=== PATIENT | male | born 1945 | race Caucasian/White ===

== ENCOUNTER 2025-07-20 08:10 | Day surgery (SDC) | payer OTHER, MEDICARE ==
[2025-07-20 08:36] LABS: ABSOLUTE IMMATURE GRANULOCYTES 0.02 x10^3/uL (0.0-0.031); BASOPHILS # 0.03 x10^3/uL (0.01-0.08); EOSINOPHIL % 2.6 % (0.8-7.0); EOSINOPHILS # 0.18 x10^3/uL (0.04-0.54); MCHC 31.5 g/dl (32.3-36.5); MEAN CELL VOLUME 101.5 fl (79.0-92.2); MEAN PLT VOLUME 9.2 fl (9.4-12.4); MONOCYTE # 0.55 x10^3/uL (0.30-0.82); MONOCYTE % 7.9 % (5.3-12.2); RDW 13.2 % (12.2-16.6)
[2025-07-20 09:36] LABS: GLUCOSE,RANDOM 142 mg/dL (74-106)
[2025-07-20 09:37] LABS: TOT PROT 6.8 g/dl (6.4-8.2)
[2025-07-20 09:38] LABS: CO2 25 mmol/L (21-32)
[2025-07-20 09:39] LABS: ALK PHOS 52 U/L (40-150)
[2025-07-20 09:41] LABS: LDH 152 U/L (87-246)
[2025-07-20 09:42] LABS: CREATININE 2.79 mg/dL (0.55-1.3); SGOT/AST 14 U/L (5-34); SGPT/ALT 13 U/L (0-55)
[2025-07-20] MEDS: ACETAMINOPHEN 325 MG TABLET (FP) PO ONE (10:30)
[2025-07-20] MEDS: SODIUM CHLORIDE 250 ML IV ONE ×3 (10:38→11:48)
[2025-07-20] MEDS: DEXAMETHASONE SODIUM PHOSPHATE 20 MG, DIPHENHYDRAMINE 25 MG in SODIUM CHLORIDE 100 ML IVPB ONE (10:39)
[2025-07-20] MEDS: DARATUMUMAB-HYALURONIDASE-FIHJ (FASPRO) 15 ML VIAL SQ ONE (11:49)
[2025-07-20 15:05] VITALS: TEMP 97.5
[2025-07-20 15:08] VITALS: BP 152/62; PULSE 61; RESP 20
== END 2025-07-20 12:30 | disposition home or self-care (01) ==
LOC: JONCCHEMO 08:10
PROVIDERS: ATTEND Internal Medicine Hematology & Oncology
PROC: 3E01305 Introduction of Other Antineoplastic into Subcutaneous Tissue, Percutaneous Approach (ICD-10-PCS; principal; 2025-07-20)
PROC: 3E0337Z Introduction of Electrolytic and Water Balance Substance into Peripheral Vein, Percutaneous Approach (ICD-10-PCS; 2025-07-20)
DX: Z51.11 Encounter for antineoplastic chemotherapy (principal); C90.00 Multiple myeloma not having achieved remission; D47.2 Monoclonal gammopathy
CPT/HCPCS: 36415; 80053; 83615; 83735; 84550; 85025; 96365; 96401; J9144

== ENCOUNTER 2025-08-24 07:57 | Day surgery (SDC) | payer OTHER, MEDICARE ==
[2025-08-24 07:50] LABS: ABSOLUTE IMMATURE GRANULOCYTES 0.03 x10^3/uL (0.0-0.031); BASOPHILS # 0.03 x10^3/uL (0.01-0.08); EOSINOPHIL % 2.0 % (0.8-7.0); EOSINOPHILS # 0.16 x10^3/uL (0.04-0.54); MCHC 31.6 g/dl (32.3-36.5); MEAN CELL VOLUME 99.7 fl (79.0-92.2); MEAN PLT VOLUME 8.8 fl (9.4-12.4); MONOCYTE # 0.76 x10^3/uL (0.30-0.82); MONOCYTE % 9.3 % (5.3-12.2); RDW 13.0 % (12.2-16.6)
[2025-08-24 08:13] LABS: GLUCOSE,RANDOM 120 mg/dL (74-106); TOT PROT 6.8 g/dl (6.4-8.2)
[2025-08-24 08:14] LABS: CO2 26 mmol/L (21-32)
[2025-08-24 08:16] LABS: ALK PHOS 55 U/L (40-150)
[2025-08-24 08:17] LABS: LDH 176 U/L (87-246)
[2025-08-24 08:19] LABS: CREATININE 3.02 mg/dL (0.55-1.3); SGOT/AST 17 U/L (5-34); SGPT/ALT 23 U/L (0-55)
[2025-08-24] MEDS: ACETAMINOPHEN 325 MG TABLET (FP) PO ONE (10:14)
[2025-08-24] MEDS: SODIUM CHLORIDE 250 ML IV ONE (10:14)
[2025-08-24] MEDS: DEXAMETHASONE SODIUM PHOSPHATE 20 MG, DIPHENHYDRAMINE 25 MG in SODIUM CHLORIDE 100 ML IVPB ONE (10:14)
[2025-08-24] MEDS: DARATUMUMAB-HYALURONIDASE-FIHJ (FASPRO) 15 ML VIAL SQ ONE (11:17)
[2025-08-24 14:00] VITALS: RESP 18; TEMP 97.7
[2025-08-24 14:05] VITALS: BP 151/55; PULSE 58
== END 2025-08-24 11:35 | disposition home or self-care (01) ==
LOC: JONCCHEMO 07:57 → J7W 07:58 → JONCCHEMO 11:35
PROVIDERS: ATTEND Internal Medicine Hematology & Oncology
PROC: 3E033GC Introduction of Other Therapeutic Substance into Peripheral Vein, Percutaneous Approach (ICD-10-PCS; principal; 2025-08-24)
PROC: 3E01305 Introduction of Other Antineoplastic into Subcutaneous Tissue, Percutaneous Approach (ICD-10-PCS; 2025-08-24)
DX: Z51.11 Encounter for antineoplastic chemotherapy (principal); C90.00 Multiple myeloma not having achieved remission
CPT/HCPCS: 36415; 80053; 83615; 83735; 84550; 85025; 96365; 96401; J9144